=== PATIENT | female | born 1990 | race Caucasian/White ===

== ENCOUNTER 2024-04-27 13:51 | Emergency (ER) | payer OTHER, SELFPAY ==
[2024-04-27] VITALS (14 sets, daily range): BP systolic 124–144; BP diastolic 67–97; PULSE 75–102; RESP 13–25; TEMP 36.6; O2SAT 95–100; BMI 20.9
--- NOTE | 2024-04-27 14:01 | DI.RAD.S_ITS ---
PROCEDURE: XR CHEST 1V INDICATIONS: bucked off horse, tail bone/pelvic pain w leg movement TECHNIQUE: One view of the chest was acquired. COMPARISON: None. FINDINGS: Surgical changes and devices: None. Lungs and pleura: Lungs are clear. No pleural effusions or pneumothorax. Mediastinum: Mediastinal contours appear normal. Heart size is normal. Bones and chest wall: There are nondisplaced fractures of the left lateral 6th and 7th ribs. No suspicious bony lesions. Overlying soft tissues appear unremarkable. IMPRESSION: Left lateral 6th and 7th rib fractures without change underlying pulmonary injury. Dictated by: Sonali Zaragoza M.D. on 04/27/2024 at 13:22 Approved by: Sonali Zaragoza M.D. on 04/27/2024 at 13:27
--- NOTE | 2024-04-27 14:01 | DI.CT.S_ITS ---
PROCEDURE: CT TRAUMA CHEST ABDOMEN PELVIS INDICATIONS: Trauma TECHNIQUE: MDCT axial chest images were obtained with IV contrast in the arterial phase. Maximum intensity projections and multiplanar reformats were obtained. MDCT axial abdomen and pelvis images were obtained with IV contrast in the portal venous phase. Multiplanar reformats were obtained. Optional delayed phase scanning may also be obtained Advanced techniques were used to lower patient radiation exposure. COMPARISON: Same day chest and pelvic radiographs. FINDINGS Image Quality: Diagnostic. Chest: Lungs and pleura: No pneumothorax or hemothorax. No pulmonary contusions or lacerations. No solid pulmonary nodule requiring follow-up. Vascular: No dissection or pseudoaneurysm. No incidental central pulmonary embolism. No hemopericardium. Mediastinum: No mediastinum hematoma. No suspicious mass or lymph nodes. No actionable thyroid nodules. Chest wall: Intact clavicles, scapula, and glenohumeral joint. Left lateral 6th and 7th rib fractures are subacute with callus formation. There is no acute or displaced rib fracture. Is Thoracic spine: No acute fracture or traumatic subluxation. ABDOMEN and PELVIS: Liver: No laceration or capsular hematoma. Gallbladder: Unremarkable. Biliary system: Non-dilated. Pancreas: Unremarkable. Spleen: No laceration or capsular hematoma. Adrenals: No suspicious nodules. Kidneys: No contrast extravasation or hydronephrosis. No solid masses. Vessels and lymph nodes: No pathology lymph nodes by size criteria. No dissection or aneurysm. No retroperitoneal hematoma. Bowel and peritoneum: No suspicious region of mesenteric hemorrhage or hemoperitoneum. No bowel obstruction. Pelvis: Unremarkable bladder. Pelvic ring and femurs: There are nondisplaced fractures of the left sacral ala which extends into the S1 and S2 neural foramina on the left. There is a fracture of the superior pubic ramus No hip fractures. Lumbar spine: No acute fracture or traumatic subluxation. Abdominal wall: No drainable fluid collection or hematoma. IMPRESSION: 1. No acute traumatic injury of the chest. Rib fractures seen on the comparison radiograph are subacute. 2. Right superior pubic ramus and left sacral fractures. 3. No significant traumatic injury of the abdominal or pelvic organs. Dictated by: Sonali Zaragoza M.D. on 04/27/2024 at 13:52 Approved by: Sonali Zaragoza M.D. on 04/27/2024 at 14:07
--- NOTE | 2024-04-27 14:01 | DI.RAD.S_ITS ---
PROCEDURE: XR PELVIS 1-2V INDICATIONS: bucked off horse, tail bone/pelvic pain w leg movement TECHNIQUE: 1 view(s) of the pelvis acquired. COMPARISON: None. FINDINGS: Bones: No discrete fractures identified however there is questionable discontinuity of sacral cortical lines in several locations. No suspicious bony lesions. Soft tissues: Visualized bowel gas pattern is normal. No suspicious soft tissue calcifications. IMPRESSION: Findings concerning for sacral fracture. Attention on upcoming CT is recommended. Dictated by: Sonali Zaragoza M.D. on 04/27/2024 at 13:28 Approved by: Sonali Zaragoza M.D. on 04/27/2024 at 13:34
--- NOTE | 2024-04-27 14:01 | DI.CT.S_ITS ---
PROCEDURE: CT HEAD/BRAIN WO CON INDICATIONS: Trauma TECHNIQUE: Noncontrast 4.5 mm thick angled axial sections acquired from the foramen magnum to the vertex, with coronal and sagittal reformats. For radiation dose reduction, the following was used: automated exposure control, adjustment of mA and/or kV according to patient size. COMPARISON: None. FINDINGS: Image quality: Diagnostic. CSF spaces: Basal cisterns are patent. No extra-axial fluid collections. Ventricles are normal in size and shape. Brain: No midline shift. No intracranial masses or hemorrhage. Uriarte-white matter interface is normal. Skull and face: Calvarium and visualized facial bones are intact, without suspicious lesions. Sinuses: Visualized sinuses and mastoids are clear. IMPRESSION: No acute intracranial pathology. Dictated by: Sonali Zaragoza M.D. on 04/27/2024 at 13:46 Approved by: Sonali Zaragoza M.D. on 04/27/2024 at 13:49
--- NOTE | 2024-04-27 14:02 | DI.CT.S_ITS ---
PROCEDURE: CT CERVICAL SPINE WO CON INDICATIONS: Trauma TECHNIQUE: Noncontrast 3 mm thick sections acquired from the skull base to the T4 level. Sagittal and coronal reformats were then constructed. For radiation dose reduction, the following was used: automated exposure control, adjustment of mA and/or kV according to patient size. COMPARISON: None. FINDINGS: Image quality: Excellent. Bones: No fracture or dislocation. Visualized superior ribs are intact. Soft tissues: Prevertebral soft tissues are normal in thickness. No paravertebral hematomas. No apical pneumothoraces. IMPRESSION: No displaced fracture or traumatic subluxation. Dictated by: Sonali Zaragoza M.D. on 04/27/2024 at 13:49 Approved by: Sonali Zaragoza M.D. on 04/27/2024 at 13:51
--- NOTE | 2024-04-27 14:02 | ED.TRAUMA ---
HPI - Trauma General Chief Complaint: Trauma Stated Complaint: Fell off Horse, Low Back Pain Time Seen by Provider: 04/27/24 13:52 Source: patient, EMS, RN notes reviewed and old records reviewed Mode of arrival: EMS Limitations: no limitations History of Present Illness HPI narrative: 33-year-old female no reported medical issues states her only medication is oral contraceptive was riding her horse. She states it did not want to try and bucked her off. She landed on her right hip in back. She states she felt pop and has pain kind of in the tailbone region and any sort of movement of her legs. Pain does not radiate down her legs. States that is also in the pubic area but more on the right. Patient states she did hit her head she did have a helmet on denies any headache or loss of consciousness no neck or back pain there than some low back pain. Denies any chest pain or shortness of breath. No nausea or vomiting. No other GI or urinary symptoms no loss of bowel or bladder control. It is quite painful for her to try to straighten her legs but she states that hurts at the pelvic hip area and lower back and not down her legs. No numbness tingling or weakness reported. Patient states only medication is oral contraceptive. Denies any allergies to medications. Denies regular tobacco, alcohol or recreational drugs. Injury occurred about 30 minutes prior to arrival. Patient was transferred via EMS received fentanyl EN route which was helpful. Related Data Allergies Allergy/AdvReac Type Severity Reaction Status Date / Time No Known Drug Allergies Allergy Verified 04/27/24 14:11 Review of Systems Review of Systems ROS Unobtainable: All systems reviewed & are unremarkable except as noted in HPI and below Patient History Social History Smoking Status: Never smoker Exam Narrative Exam Narrative: GEN: Female patient appears in moderate distress. HEAD: No evidence of trauma, no raccoon/Castro sign. NECK: Nontender, painless range of motion, trachea midline Positive Nexus criteria, no midline line tenderness, positive for distracting injury, altered mental status, neuro deficit, recent EtOH. EYES: PERRLA, EOMI ENT: External inspection normal, trachea is midline, TM's are normal no hemotypanum, Nares are clear, no septal hematoma, no dental or oral injury, airway is normal and with normal occlusion, No bony tenderness RESP: Chest is nontender and has symmetric movement, no ecchymosis, breath sounds are normal no crackles, wheezes or rales CVS: Heart sounds are normal, no murmur noted, No JVD. ABG/GI: Nontender, soft, normal bowel sounds, no distention, no organomegaly, pelvic rock is negative NEURO: Oriented AOx3, neuro is grossly intact, sensation and motor is normal all 4 extremities moving, cranial nerves II through XII are intact, GCS is 15 PSYCH: Normal mood and affect SKIN: Intact, warm and dry, no crepitus and without decubitus BACK: No CVA tenderness, no vertebral tenderness, no step-off's, no crepitus EXT: Atraumatic, hips are nontender but patient has pain with any attempt of straightening her hip bones bilaterally but particularly more on the right. She is nontender throughout bilateral lower extremities. 2+ pulses bilaterally. Has good dorsi plantar flexion can lift and straighten her legs but is very uncomfortable. No pedal edema, normal color and temperature, normal range of motion of extremities with normal tendon exam, 2+ pulses in all four extremities Initial Vital Signs Initial Vital Signs: Vital Signs Temperature 97.8 F 04/27/24 13:54 Pulse Rate 75 04/27/24 13:54 Respiratory Rate 14 04/27/24 13:54 Blood Pressure 137/80 04/27/24 13:54 Pulse Oximetry 98 04/27/24 13:54 Oxygen Delivery Method Room Air 04/27/24 13:54 Course Orders Ordered: ED Orders 04/27/24 14:01 CT Trauma Chest Abdomen Pelvis Stat CT head/brain wo con Stat XR chest 1V Stat XR pelvis 1-2V Stat Urine Drug Screen, Rapid Stat EKG-12 Lead Stat 04/27/24 14:02 CT cervical spine wo con Stat 04/27/24 14:10 Complete Blood Count AUTO DIFF Stat Comprehensive Metabolic Panel Stat Ethanol (ETOH) Stat Lactate (Lactic Acid) Stat Lipase Stat 04/27/24 14:33 PTT Partial Thromboplastin Edouard Stat Prothrombin Time INR Stat Type and Screen Stat Discontinued Medications Diphtheria/Tetanus/Acell Pertussis (Tet,Diph,Pertuss(Acell),Vac/Pf 0.5 Ml Syringe) 0.5 ml IM .ONCE ONE Stop: 04/27/24 14:02 Last Admin: 04/27/24 15:23 Dose: Not Given Documented By: LILIAN Hydromorphone HCl (Hydromorphone 0.5 Mg Inj) 0.5 mg IV NOW ONE Stop: 04/27/24 17:06 Last Admin: 04/27/24 17:13 Dose: 0.5 mg Documented By: LILIAN Hydromorphone HCl (Hydromorphone 0.5 Mg Inj) 0.5 mg IV NOW ONE Stop: 04/27/24 18:17 Last Admin: 04/27/24 18:35 Dose: 0.5 mg Documented By: SILVIA Morphine Sulfate (Morphine 4 Mg/Ml Inj) 4 mg IV NOW ONE Stop: 04/27/24 14:02 Last Admin: 04/27/24 14:10 Dose: 4 mg Documented By: MYKEL Morphine Sulfate (Morphine 4 Mg/Ml Inj) 4 mg IV NOW ONE Stop: 04/27/24 15:54 Last Admin: 04/27/24 16:04 Dose: 4 mg Documented By: SILVIA Ondansetron HCl (Ondansetron 4 Mg/2 Ml Inj) 4 mg IV NOW ONE Stop: 04/27/24 14:12 Last Admin: 04/27/24 14:11 Dose: 4 mg Documented By: MYKEL Vital Signs Vital signs: Vital Signs - 8 hr 04/27/24 13:54 04/27/24 14:01 04/27/24 14:02 Temperature 97.8 F Pulse Rate 75 75 Respiratory Rate 14 Blood Pressure 137/80 137/80 Pulse Oximetry 98 98 Oxygen Delivery Method Room Air 04/27/24 14:02 04/27/24 14:30 04/27/24 15:00 Temperature Pulse Rate 76 83 79 Respiratory Rate 13 Blood Pressure Pulse Oximetry 98 99 96 Oxygen Delivery Method Room Air 04/27/24 15:30 04/27/24 16:00 04/27/24 16:30 Temperature Pulse Rate 85 81 81 Respiratory Rate 21 25 H 24 Blood Pressure Pulse Oximetry 100 98 97 Oxygen Delivery Method Room Air Room Air 04/27/24 17:00 04/27/24 17:30 Temperature Pulse Rate 83 92 H Respiratory Rate Blood Pressure Pulse Oximetry 97 98 Oxygen Delivery Method Room Air MDM - Trauma Lab Data 04/27/24 14:10 04/27/24 14:10 Labs: Lab Results 04/27/24 04/27/24 Range/Units 14:10 14:33 WBC 7.7 (4.5-11.0) X10^3/uL RBC 4.64 (4.0-5.2) X10^6/uL Hgb 14.6 (12.0-16.0) g/dL Hct 43.4 (36-46) % MCV 93.4 (80-100) fL MCH 31.5 (26-34) PG MCHC 33.8 (30-36) % RDW 12.9 (11.6-14.8) % Plt Count 164 (150-400) X10^3/uL Neut % (Auto) 76.4 H (50-75) % Lymph % (Auto) 18.2 L (25-40) % [place] % (Auto) 4.2 (3-14) % Eos % (Auto) 0.4 L (2-4) % Baso % (Auto) 0.8 (0-2) % Neut # (Auto) 5900 (8109-8626) /uL Lymph # (Auto) 1400 (3269-1982) /uL [place] # (Auto) 300 (0-900) /uL Eos # (Auto) 0 (0-450) /uL Baso # (Auto) 100 (0-100) /uL PT 12.3 (9.4-12.5) SECONDS INR 1.1 (0.9-1.3) APTT 32 (25.1-36.5) SECONDS Sodium 135 L (137-145) mmol/L Potassium 4.3 (3.4-5.1) mmol/L Chloride 102 (98-107) mmol/L Carbon Dioxide 27 (22-32) mmol/L BUN 13 (7-17) mg/dL Creatinine 0.55 (0.52-1.04) mg/dL Estimated GFR > 60 (>60) mL/min BUN/Creatinine Ratio 23.6 H (6-22) Glucose 90 (70-100) mg/dL Lactate 1.4 (0.7-2.1) mmol/L Calcium 9.2 (8.4-10.2) mg/dL Total Bilirubin 0.9 (0.2-1.3) mg/dL AST 51 H (14-36) IU/L ALT 28 (<35) IU/L Alkaline Phosphatase 99 (38-126) U/L Total Protein 7.5 (6.3-8.2) g/dL Albumin 4.4 (3.5-5.0) g/dL Globulin 3.1 (1.7-4.1) g/dL Albumin/Globulin Ratio 1.4 (1.0-2.8) Lipase 139 (23-300) U/L Ethyl Alcohol < 10 ( - 10) mg/dL Blood Type O Positive Antibody Screen Negative ECG Data Attestation: I personally reviewed and interpreted this ECG as follows: Prior ECG tracings: not available for review Interpretation: Sinus rhythm with sinus arrhythmia rate of 73 DE 136 QRS is 74 QTC of [address] elevation or depression noted. No prior for comparison. [facility] Narrative Medical decision making narrative: 33-year-old female was riding her horse when she was bucked often complains of pain of the right hip pubic area coccygeal area. Patient has pain if she attempts to straighten her legs on both sides but particularly in the right. She does not have any discrete bony tenderness on exam but is quite uncomfortable to be rolled. Initial x-ray of the obturator foramen appears smaller and I suspect she has some form of pelvic or sacral fracture. CT imaging head and neck as patient did hit her head does have somewhat distracting injury chest abdomen pelvis included as well. Patient's initial vitals are appropriate. CBC shows normal white count, hemoglobin and platelets of 164. Coags are negative sodium is 135 electrolytes appropriate creatinine 0.55 glucose is 90 AST is 51 LFTs are otherwise appropriate lipase is 139. ETOH is negative Chest x-ray, left lateral 6th and 7th rib fractures. No pleural effusion or pneumothorax. EKG shows sinus rhythm with sinus arrhythmia [facility] xray findings concerning for sacral fracture attention and upcoming CT recommended. Head Ct shows no acute change CT cervica spine shows no fracture or traumatic subluxation. Chest/abd/pelvis CT, no acute trauma to chest rib fracture seen on comparison or subacute right superior pubic rami and left sacral fractures no significant traumatic injury the abdominal or pelvic organs. This seems consistent with the patient's physical exam findings. Patient received pain medications. Ortho paged [phone]. Spoke with Dr. Mejias, orthopedic surgery at [place]: Reviewed patient's imaging. States would be weight-bearing as tolerated with pain management and walker. Discussed patient has pretty painful probably have quite a bit of difficulty with ambulation. She asked if we push images and consult with [facility] see if they have any other recommendations if patient ultimately stays here for admission she was happy to consult but would ask to be admitted to medicine. 1630 Spoke with coordinator at [facility]. 1722 Dr. Tinajero, orthopedic/pelvic specialist reviewed patient's films would recommend if patient would be agreeable for potential surgery to transfer down we will likely we are going to pain management for the next 24-48 hours if patient is not ambulating well can potentially convert to surgical care. Dr. Ashby accepts for transfer if patient is willing. Spoke with the patient, she has family at bedside she feels comfortable with the plan. discussed potential for surgery but not definitive at this time. We will see how patient tolerates her injuries but maybe converted to surgical treatment dependent on her course. She is agreeable to transfer. Recontacted [facility] coordinator. Updated patient agreeable to transfer. Plan for ED to ED transfer. Will transfer ALS for pain management. Discharge Plan Departure Patient Disposition: [facility] Clinical Impression: Closed fracture of pubic ramus, Closed sacral fracture Referrals: Miscellaneous,Doctor, [Primary Care Provider] -
--- NOTE | 2024-04-27 14:09 | EKG_ITS ---
[facility] [address], [place] [address] Test Date: 2024-04-27 Pat Name: Siobhan Mejias Department: [facility] Room: Gender: Female Eeo Officer: JARROD : 1990 Requested By: Order Number: [id number] Reading MD: Aj Howard MD Measurements Intervals Vincent Rate: 73 P: 73 FL: 136 QRS: 75 QRSD: 74 T: 60 QT: 382 QTc: 420 Interpretive Statements Normal sinus rhythm with sinus arrhythmia Electronically Signed On 04-27-2024 16:17:38 PST by Aj Howard MD
[2024-04-27] MEDS: MORPHINE 4 MG/ML INJ IV ×2 (14:10→16:04)
[2024-04-27] MEDS: ONDANSETRON 4 MG/2 ML INJ IV (14:11)
[2024-04-27 14:20] LABS: Add Manual Diff / Slide Review NO; Basophils Absolute Auto 100 /uL (0-100); Basophils Percent Auto 0.8 % (0-2); Eosinophils Absolute Auto 0 /uL (0-450); Eosinophils Percent Auto 0.4 % (2-4); Hematocrit 43.4 % (36-46); Hemoglobin 14.6 g/dL (12.0-16.0); Lymphocytes Absolute Auto 1400 /uL (1100-4500); Lymphocytes Percent Auto 18.2 % (25-40); Mean Corpuscular HGB Conc 33.8 % (30-36); Mean Corpuscular Hemoglobin 31.5 PG (26-34); Mean Corpuscular Volume 93.4 fL (80-100); Monocytes Absolute Auto 300 /uL (0-900); Monocytes Percent Auto 4.2 % (3-14); Neutrophils Absolute Auto 5900 /uL (1500-7000); Neutrophils Percent Auto 76.4 % (50-75); Platelet Count 164 X10^3/uL (150-400); Red Blood Cell Count 4.64 X10^6/uL (4.0-5.2); Red Cell Distribution Width 12.9 % (11.6-14.8); White Blood Cell Count 7.7 X10^3/uL (4.5-11.0)
[2024-04-27 14:31] LABS: Alanine Aminotransferase 28 IU/L (<35); Albumin 4.4 g/dL (3.5-5.0); Albumin Globulin Ratio 1.4 (1.0-2.8); Alkaline Phosphatase 99 U/L (38-126); Aspartate Aminotransferase 51 IU/L (14-36); BUN Creatinine Ratio 23.6 (6-22); Bilirubin Total 0.9 mg/dL (0.2-1.3); Blood Urea Nitrogen 13 mg/dL (7-17); Calcium 9.2 mg/dL (8.4-10.2); Carbon Dioxide 27 mmol/L (22-32); Chloride 102 mmol/L (98-107); Estimated Glomerular Filt Rate > 60 mL/min (>60); Ethanol (ETOH) < 10 mg/dL; Globulin 3.1 g/dL (1.7-4.1); Glucose 90 mg/dL (70-100); Lactate (Lactic Acid) 1.4 mmol/L (0.7-2.1); Lipase 139 U/L (23-300); Potassium 4.3 mmol/L (3.4-5.1); Sodium 135 mmol/L (137-145); Total Protein 7.5 g/dL (6.3-8.2)
[2024-04-27 14:34] LABS: HEMOLYSIS 79 (0-50)
--- NOTE | 2024-04-27 14:44 | PC.NURSE ---
Patient here in department after falling off her horse, modified trauma called at 1354, Charge nurse Kassidy and Amaris RN at bedside to help this RN who does not have [facility] yet, survey was completed with them. No LOC, was wearing a helmet, is endorsing right groin/hip pain, patient unable to straighten legs because of pain. Patient received fentanyl otw and has received 4 of morphine in department, see MAR.
[2024-04-27 15:06] LABS: INR 1.1 (0.9-1.3); PTT Partial Thromboplastin Tim 32 SECONDS (25.1-36.5); Prothrombin Time 12.3 SECONDS (9.4-12.5)
[2024-04-27] MEDS: HYDROMORPHONE 0.5 MG INJ IV ×2 (17:13→18:35)
== END 2024-04-27 19:04 | disposition short-term general hospital (02) ==
PROVIDERS: Emergency Provider Emergency Medicine
DX: S32.511A Fracture of superior rim of right pubis, initial encounter for closed fracture (principal); S32.10XA Unspecified fracture of sacrum, initial encounter for closed fracture; S22.42XA Multiple fractures of ribs, left side, initial encounter for closed fracture; V80.010A Animal-rider injured by fall from or being thrown from horse in noncollision accident, initial encounter; Y93.52 Activity, horseback riding
CPT/HCPCS: 36415; 70450; 71045; 71275; 72125; 72170; 74177; 80053; 80320; 83605; 83690; 85025; 85610; 85730; 86850; 86900; 86901; 93005; 96374; 96375; 96376; 99285; J1171; J2270; J2405; Q9967